=== PATIENT | male | born 1955 | race Caucasian/White ===

== ENCOUNTER 2019-08-13 12:46 | Emergency (ER) | payer BC ==
[~2019-08-13] VITALS: Ht 180.3 cm; Wt 98.9 kg
--- OUTSIDE RECORDS SUMMARY | 2019-08-13 12:49 | XMS REPORT | Clinical Summary ---
Author Author [facility] Organization [facility] Address Unknown Phone Unavailable Care Team Providers Care Packaging Mechanic Name Role Phone Asked, No Pcp PCP Unavailable Allergies No Known Allergies Medications End Date Status Medication Sig Dispensed Refills Start Date Active ibuprofen (ADVIL,MOTRIN) 200 mg 3 tabs 0 200 MG tablet qd PRN Active metFORMIN (GLUCOPHAGE) Take 500 mg 0 500 mg tablet by mouth 9 daily with breakfast. 06/16/2020 Active aspirin (ECOTRIN) 81 MG Take 1 tablet 100 tablet 3 enteric coated tablet (81 mg total) 9 by mouth daily. Active ELIQUIS 5 mg tablet TAKE 1 TABLET 60 tablet 2 (5 MG TOTAL) 9 BY MOUTH 2 (TWO) TIMES A DAY. Active ELIQUIS 5 mg tablet TAKE 1 TABLET 60 tablet 2 (5 MG TOTAL) 9 BY MOUTH 2 (TWO) TIMES A DAY. Active oxyCODone-acetaminophen Take 1-2 0 (PERCOCET) 5-325 mg per tablets by 9 tablet mouth as needed. Active DULoxetine (CYMBALTA) 30 Take 30 mg by 0 MG capsule mouth 2 (two) times a day. 08/08/2019 Discontinued (Med List Cleanup) omeprazole (PriLOSEC) 40 Take 40 mg by 0 MG capsule mouth daily. 04/24/2019 Discontinued (Therapy completed) chlorpheniramine Take 4 mg by 0 (CHLOR-TRIMETON) 4 mg mouth daily. tablet 12/12/2018 Discontinued nortriptyline (PAMELOR) Take 25 mg by 4 25 MG capsule mouth 2 (two) 6 times a day. 04/24/2019 Discontinued (Therapy completed) aspirin (ECOTRIN) 81 MG Take 1 tablet 30 tablet 11 enteric coated tablet (81 mg total) by mouth daily. 09/01/2018 Discontinued (Reorder) ELIQUIS 5 mg tablet TAKE 1 TABLET 60 tablet 6 BY MOUTH 7 TWICE A DAY. 11/08/2018 Discontinued (Reorder) nortriptyline (PAMELOR) Take 2 720 capsule 3 10 MG capsule capsule(s) 4 7 times a day by oral route for 90 days. 12/12/2018 Discontinued rosuvastatin (CRESTOR) 40 Take 1 90 tablet 3 MG tablet tablet(s) 7 every day by oral route for 90 days. 11/09/2018 Discontinued (Reorder) ELIQUIS 5 mg tablet TAKE ONE 60 tablet 11 TABLET BY 8 MOUTH TWICE A DAY 04/24/2019 Discontinued (Therapy completed) nortriptyline (PAMELOR) TAKE 2 240 capsule 1 10 MG capsule CAPSULES BY 8 MOUTH FOUR TIMES A DAY 11/09/2018 Discontinued (Reorder) apixaban (ELIQUIS) 5 mg Take 1 tablet 60 tablet 2 tablet (5 mg total) 8 by mouth 2 (two) times a day. 03/02/2019 Discontinued (Reorder) apixaban (ELIQUIS) 5 mg Take 1 tablet 60 tablet 2 tablet (5 mg total) 8 by mouth 2 (two) times a day. 12/12/2018 Discontinued (Reorder) amLODIPine (NORVASC) 5 mg Take 1 tablet 90 tablet 3 tablet (5 mg total) 9 by mouth daily. 06/17/2019 Discontinued (Med List Cleanup) amLODIPine (NORVASC) 5 mg Take 1 tablet 90 tablet 3 tablet (5 mg total) 9 by mouth daily. 07/16/2019 Discontinued (Reorder) ELIQUIS 5 mg tablet TAKE 1 TABLET 60 tablet 2 (5 MG TOTAL) 9 BY MOUTH 2 (TWO) TIMES A DAY. 06/17/2019 Discontinued (Med List Cleanup) atorvastatin (LIPITOR) 40 Take 40 mg by 0 MG tablet mouth daily. 9 06/17/2019 Discontinued DULoxetine (CYMBALTA) 30 Take 30 mg by 0 MG capsule mouth daily. 9 06/17/2019 Discontinued (Med List Cleanup) cetirizine (ZyrTEC) 10 MG Take 10 mg by 0 tablet mouth daily. 08/08/2019 Discontinued escitalopram (LEXAPRO) 10 Take 1 tablet 30 tablet 2 MG tablet (10 mg total) 9 by mouth daily for 90 days. 08/08/2019 Discontinued (Med List Cleanup) gabapentin (NEURONTIN) Take 1 120 capsule 11 300 mg capsule capsule in 9 the morning, 1 in the afternoon, and 2 at night. 07/22/2019 methylPREDNISolone follow 1 tablet 0 (MEDROL, BERYL,) 4 mg package 9 tablet directions 08/08/2019 Discontinued (Med List Cleanup) traMADol (ULTRAM) 50 mg Take 1 tablet 40 tablet 0 tabletIndications: Acute (50 mg total) 9 Pain by mouth every 6 (six) hours as needed for moderate pain for up to 30 days .Acute Pain. 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 Paroxysmal atrial fibrillation 02/15/2017 SVT (supraventricular tachycardia) 02/15/2017 Cardioembolic stroke 02/15/2017 Occlusion of carotid artery 12/14/2016 Cerebral artery occlusion 12/14/2016 Cerebral infarction 12/14/2016 Headache 12/14/2016 Dizziness 10/31/2016 Fatigue 10/31/2016 Chest pain 10/31/2016 Palpitations 10/31/2016 Neuropathy 05/04/2016 Small cell carcinoma of lung 03/19/2016 Encounters Care Team Description Date Type Specialty Sinan Segundo MD Cardioembolic stroke (HCC) (Primary Dx); Paroxysmal atrial fibrillation (HCC); Dizziness 08/08/2019 Office Visit Neurology Ilia Jimenez MD Spinal stenosis, unspecified spinal region (Primary Dx) 08/05/2019 Office Visit Orthopedic Surgery Yue Villagomez MA 08/01/2019 Abstract Orthopedic Surgery Yue Villagomez MA Left upper extremity numbness (Primary Dx); Neck pain 07/25/2019 Orders Only Orthopedic Surgery Yue Villagomez MA 07/25/2019 Telephone Orthopedic Surgery Ilia Jimenez MD Arthritis of left shoulder region (Primary Dx) 07/17/2019 Office Visit Orthopedic Surgery Orville Zheng MD PhD Med Refill 07/16/2019 Refill Cardiology Orville Zheng MD PhD Med Refill 07/16/2019 Refill Cardiology Sinan Segundo MD Cardioembolic stroke (HCC) (Primary Dx); Paroxysmal atrial fibrillation (HCC); Neuropathy 06/17/2019 Office Visit Neurology Orville Zheng MD PhD 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 Hospital Procedural Cardiology Encounter Orville Zheng MD PhD Paroxysmal atrial fibrillation (HCC) (Primary Dx); Congenital absence of inferior vena cava; 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) 04/24/2019 Office Visit Cardiology Orville Zheng MD PhD 04/24/2019 Orders Only Cardiology Orville Zheng MD PhD Cryptogenic stroke (HCC) 04/13/2019 Hospital Procedural Cardiology Encounter Orville Zheng MD PhD Cryptogenic stroke (HCC) 03/14/2019 Hospital Procedural Cardiology Encounter Orville Zheng MD PhD Cryptogenic stroke (HCC) 03/13/2019 Hospital Procedural Cardiology Encounter Orville Zheng MD PhD Med Refill 03/02/2019 Refill Cardiology Orville Zheng MD PhD Cryptogenic stroke (HCC) 02/12/2019 Hospital Procedural Cardiology Encounter Orville Zheng MD PhD Cryptogenic stroke (HCC) 02/10/2019 Hospital Procedural Cardiology Encounter Orville Zheng MD PhD Cryptogenic stroke (HCC) 01/13/2019 Hospital Procedural Cardiology Encounter Orville Zheng MD PhD Cryptogenic stroke (HCC) 01/12/2019 Hospital Procedural Cardiology Encounter Orville Zheng MD PhD Paroxysmal atrial fibrillation (HCC) (Primary Dx); Status post placement of implantable loop recorder; S/P catheter ablation of slow pathway; Essential hypertension 12/12/2018 Office Visit Cardiology Orville Zheng MD PhD 12/12/2018 Orders Only Cardiology Orville Zheng MD PhD Cryptogenic stroke (HCC) 11/14/2018 Hospital Procedural Cardiology Encounter Mary Parkinson MA Med Refill 11/09/2018 Refill Cardiology Mary Parkinson MA Med Refill 11/09/2018 Refill Cardiology Sinan Segundo MD 11/08/2018 Refill Neurology Orville Zheng MD PhD Cryptogenic stroke (HCC) 10/15/2018 Hospital Procedural Cardiology Encounter Orville Zheng MD PhD Cryptogenic stroke (HCC) 09/15/2018 Hospital Procedural Cardiology Encounter Orville Zheng MD PhD Med Refill 09/01/2018 Refill Cardiology Orville Zheng MD PhD Cryptogenic stroke 08/16/2018 Hospital Procedural Cardiology Encounter after 08/12/2018 Family History Medical History Relation Name Comments Heart attack Father Lung cancer Maternal Grandmother Arrhythmia Mother pacemaker Hypertension Mother pacemaker Lung cancer Paternal Grandmother Relation Name Status Comments Father Maternal Grandmother Mother pacemaker Paternal Grandmother Social History Date Tobacco Use Types Packs/Day Years Used Quit: 04/24/2005 Former Smoker Cigarettes 0.5 25 Smokeless Tobacco: Never Used Comments: quit 14 years a go Drinks/Week oz/Week Comments Alcohol Use Not Currently Sex Assigned at Date Recorded Not on file Industry Job Start Date Occupation Not on file Not on file Not on file Travel End Travel History Travel Start No recent travel history available. Last Filed Vital Signs Reading Time Taken Comments Vital Sign 144/89 08/08/2019 1:50 PM CDT Blood Pressure 76 08/08/2019 1:50 PM CDT Pulse - - Temperature - - Respiratory Rate - - Oxygen Saturation - - Inhaled Oxygen Concentration 98.4 kg (217 lb) 08/08/2019 1:50 PM CDT Weight 180.3 cm (5' 11") 08/08/2019 1:50 PM CDT Height 30.27 08/08/2019 1:50 PM CDT Body Mass Index Plan of Treatment Care Team Description Date Type Specialty Sinan Segundo MD [address] [id number] 08/23/2019 Appointment Neurology Sinan Segundo MD [address] [address] 08/25/2019 Appointment Neurology Sinan Segundo MD [address] [address] 10/10/2019 Office Visit Neurology Health Maintenance Due Date Last Done Comments COLONOSCOPY SCREENING 2007 SHINGLES VACCINES (#1) 2007 INFLUENZA VACCINE 06/20/2019 Implants Device Identifier Shelf Expiration Date Model / Serial / Lot Implanted Type Area Manufactur er 11/16/2017 LINQSYS / / [id number] System Reveal Linq W/Monitors - Cardiac N/A: N/A [employer] [id number] Pacemakers CARDIAC Implanted: 12/23/2016 at [facility] and [facility] (Quantity not on file) Related DISEASE Products MGMT [employer] INACTIVE / / System Reveal Linq Icm Use [place]# Cardiovasc N/A: N/A [employer] [id number] - [id number] ular CARDIAC Implanted: 12/23/2016 at [facility] (Quantity not on file) DISEASE MGMT 04/19/2017 [id number] / / [id number] Device Vasclr Clsr Vasoactive Peripheral N/A: N/A [employer] ELMA Intstnl Peptd 6fr Angio-Seal - or Biliary [id number] Stents Implanted: 07/14/2016 at [facility] (Quantity not on file) Procedures Comments Procedure Name Priority Date/Time Associated Diagnosis MRI CERVICAL SPINE WO Routine 08/01/2019 Neck pain CONTRAST 8:34 AM CDT ECG 12-LEAD Routine 04/24/2019 Paroxysmal atrial 1:11 PM CDT fibrillation (HCC) CV CARDIAC EVENT MONITOR Routine 04/24/2019 CV LOOP RECORDER MONITOR Routine 01/18/2019 Cryptogenic stroke (HCC) EVAL <30DAYS 3:45 PM LAWN SERVICE SUPERVISOR ECG 12-LEAD Routine 12/12/2018 Paroxysmal atrial 1:39 PM LAWN SERVICE SUPERVISOR fibrillation (HCC) CV PACEMAKER DEFIB ILR Routine 12/12/2018 INTERROGATION CV LOOP RECORDER MONITOR Routine 11/22/2018 Cryptogenic stroke (HCC) EVAL <30DAYS 3:27 PM LAWN SERVICE SUPERVISOR CV LOOP RECORDER MONITOR Routine 2018 Cryptogenic stroke (HCC) EVAL <30DAYS 1:45 PM LAWN SERVICE SUPERVISOR CV LOOP RECORDER MONITOR Routine 09/20/2018 Cryptogenic stroke (HCC) EVAL <30DAYS 11:08 AM CDT CV LOOP RECORDER MONITOR Routine 08/29/2018 Cryptogenic stroke (HCC) EVAL <30DAYS 1:19 PM CDT after 08/12/2018 Results * MRI Cervical Spine Wo Contrast (08/01/2019 8:34 AM CDT) Specimen Narrative Performed At [facility] EXAMINATION: MRI CERVICAL SPINE WO CONTRAST CLINICAL HISTORY: M54.2 Cervicalgia, Neck painchronicnormal neuro examneg xray COMPARISON:None TECHNIQUE: Multiplanar multisequence noncontrast enhanced examination was performed of the cervical spine. FINDINGS: Vertebral body heights are maintained. The cervicomedullary junction is unremarkable. No cord signal abnormality identified. No focal marrow lesions. No masses are present in the visualized prevertebral soft tissues. There is mild reversal of the cervical lordosis. There is no significant spondylolisthesis. There is fusion across the disc space at C6-7. Axial images through the disc spaces demonstrate the following: C1-C2: There is narrowing of the atlantoaxial interval with spurring. There is no significant stenosis. C2-C3: No significant posterior disc disease, spinal canal or neural foraminal stenosis. C3-C4: There is posterior spondylosis with mild canal narrowing to 7.8 mm. Uncovertebral arthrosis and facet disease results in moderate left and [id number]-[id number] right foraminal narrowing. C4-C5: There is posterior spondylosis with mild canal narrowing to 8 mm. Uncovertebral arthrosis and facet disease results in moderate left and mild to moderate right foraminal narrowing. C5-C6: There is posterior spondylosis with mild to moderate canal narrowing to 7.6 mm. Uncovertebral arthrosis and facet disease results in mild left and mild to moderate right foraminal narrowing. C6-C7: There is fusion across the disc space which appears solid. Uncovertebral arthrosis and facet disease is present with mild bilateral foraminal narrowing. C7-T1: No significant posterior disc disease, spinal canal or neural foraminal stenosis. The visualized upper thoracic spine at T2-3 there is posterior spondylosis with mild effacement of the ventral thecal sac. IMPRESSION: There is multilevel spondylosis with stenosis as detailed above. Correlate for individual radiculopathies to determine clinical significance at each level. No acute osseous abnormality identified. [facility]-[id number] Procedure Note Interface, Radiology Results 08/01/2019 11:29 AM CDT EXAMINATION: MRI CERVICAL SPINE WO CONTRAST CLINICAL HISTORY: M54.2 Cervicalgia, Neck pain chronic normal neuro exam neg xray COMPARISON: None TECHNIQUE: Multiplanar multisequence noncontrast enhanced examination was performed of the cervical spine. FINDINGS: Vertebral body heights are maintained. The cervicomedullary junction is unremarkable. No cord signal abnormality identified. No focal marrow lesions. No masses are present in the visualized prevertebral soft tissues. There is mild reversal of the cervical lordosis. There is no significant spondylolisthesis. There is fusion across the disc space at C6-7. Axial images through the disc spaces demonstrate the following: C1-C2: There is narrowing of the atlantoaxial interval with spurring. There is no significant stenosis. C2-C3: No significant posterior disc disease, spinal canal or neural foraminal stenosis. C3-C4: There is posterior spondylosis with mild canal narrowing to 7.8 mm. Uncovertebral arthrosis and facet disease results in moderate left and [id number] right foraminal narrowing. C4-C5: There is posterior spondylosis with mild canal narrowing to 8 mm. Uncovertebral arthrosis and facet disease results in moderate left and mild to moderate right foraminal narrowing. C5-C6: There is posterior spondylosis with mild to moderate canal narrowing to 7.6 mm. Uncovertebral arthrosis and facet disease results in mild left and mild to moderate right foraminal narrowing. C6-C7: There is fusion across the disc space which appears solid. Uncovertebral arthrosis and facet disease is present with mild bilateral foraminal narrowing. C7-T1: No significant posterior disc disease, spinal canal or neural foraminal stenosis. The visualized upper thoracic spine at T2-3 there is posterior spondylosis with mild effacement of the ventral thecal sac. IMPRESSION: There is multilevel spondylosis with stenosis as detailed above. Correlate for individual radiculopathies to determine clinical significance at each level. No acute osseous abnormality identified. [facility]-[id number] Performing Organization Address City/State/Zipcode Phone Number [facility] [address] [place] [address] * ECG 12 lead (04/24/2019 1:11 PM CDT) Only the most recent of 2 results within the time period is included. Ventricular 83 [facility] rate Atrial rate 83 [facility] WA interval 170 [facility] QRSD interval 98 [facility] QT interval 374 [facility] QTC interval 439 [facility] P axis 1 61 [facility] QRS axis 1 68 [facility] T wave axis 55 [facility] EKG impression Normal sinus rhythm-Normal [facility] M[facility] ECG-In automated comparison with ECG of 12-DEC-2018 13:39,-No significant change was found- Specimen Narrative Performed At Performing Organization Address City[facility] Phone Number [facility] [address] [place] [address] * CV Cardiac event monitor (04/24/2019) Narrative Performed At * CV pacemaker defib or ilr interrogation (12/12/2018) Narrative Performed At * CV pacemaker defib or ilr interrogation (11/22/2018 3:27 PM LAWN SERVICE SUPERVISOR) Specimen Narrative Performed At Performing Organization Address [facility] Phone Number [facility] [address] [place] [address] after 08/12/2018 Insurance Type Payer Benefit Subscriber ID Effective Phone Address Plan / Dates Group PPO BCBS BCBS xxxxxxxxxxxx [id number] CHOICE resent PPO/LATESHA MARCUM PPO Advance Directives For more information, please contact: [phone] Patient Sports Trainer Explanation Type Date Recorded Advance Directives, Living Will and Medical Power of Government Contracts Manager
--- NOTE | 2019-08-13 14:17 | Diagnostic Imaging Report ---
EXAMINATION: ANKLE 3 VIEW RT - HOPD INDICATION: Ankle pain, trauma COMPARISON: None FINDINGS: AP, lateral and mortise views of the right ankle were obtained. No acute fracture or dislocation. The ankle mortise is intact and symmetric. Minimal right ankle soft tissue swelling. No substantial joint effusion. IMPRESSION: No acute osseous injury. Mild right ankle soft tissue swelling. Signed by: Jakob Collier MD on 08/13/2019 2:13 PM
== END 2019-08-13 15:08 | disposition home or self-care (01) ==
LOC: FSED 12:46
DX: S93.491A Sprain of other ligament of right ankle, initial encounter (principal); I48.91 Unspecified atrial fibrillation; K21.9 Gastro-esophageal reflux disease without esophagitis; Z86.73 Personal history of transient ischemic attack (TIA), and cerebral infarction without residual deficits; Z79.01 Long term (current) use of anticoagulants; W10.9XXA Fall (on) (from) unspecified stairs and steps, initial encounter; Y92.009 Unspecified place in unspecified non-institutional (private) residence as the place of occurrence of the external cause; X50.1XXA Overexertion from prolonged static or awkward postures, initial encounter
CPT/HCPCS: 99284